=== PATIENT | female | born 1940 | race Caucasian/White ===

== ENCOUNTER 2017-06-13 | Day surgery (SDC) | END 2017-06-13 09:14 | disposition home or self-care (01) ==

== ENCOUNTER 2017-06-14 00:08 | Day surgery (SDC) | payer MEDICARE, OTHER ==
[~2017-06-14 00:08] MED LIST: BREO ELLIPTA 11 EACH INH; CARV25 PO; CELE100; CELE200 PO; DIAZ5 PO; ESTNOR PO; Estrace PO; FENT50TP TOP; FLUR15 PO; FURO20 PO; Ferrous Sulfat325 M2 PO; GABA300 PO; HYDACE10B PO; HYDACE5 PO; HYDCHL25 PO; IBUP600 PO; IBUP800 PO; IRBE150 PO; LEVSOD50 PO; LIDO5TP TOP; LORA1 PO; MELO7.5 PO; METF500 PO; METOPROLOL PO; MIRT30 PO; OXYACE5T PO; OXYASA5T PO; OXYC10TA19; OXYC5 PO; PANT40 PO; POTA8 PO; PRAV20 PO; RABE20; SPIR25 PO; VENL150ER PO; VENL25; VENL75ER PO
[2017-08-22] MEDS ORDERED: VENL150ER PO (12:37)
[2017-08-26] MEDS ORDERED: Estradiol0.5 MG PO (11:02)
[2017-11-08] MEDS ORDERED: Avapro300 MG PO (11:19)
[2017-11-08] MEDS ORDERED: OXYCODONE-ASPI1 EACH PO (11:21)
[2017-11-08] MEDS ORDERED: OXYC10TA19 PO (11:22)
[2017-11-08] MEDS ORDERED: MIRT30 PO (11:23)
[2017-11-08] MEDS ORDERED: VITAMIN C500 M1 PO (11:25)
[2017-11-08] MEDS ORDERED: LOPE2C PO (11:25)
[2017-11-08] MEDS ORDERED: VITAMIN D32000 UNI1 PO (11:26)
[2017-11-08] MEDS ORDERED: BREO ELLIPTA 11 EACH INH (11:27)
[2017-11-08] MEDS ORDERED: Keflex500 MG PO (13:02)
== END 2017-06-14 09:05 | disposition home or self-care (01) ==
LOC: ATC 00:08
DX: C73 Malignant neoplasm of thyroid gland (principal); E89.0 Postprocedural hypothyroidism; E78.5 Hyperlipidemia, unspecified; E66.9 Obesity, unspecified; I42.0 Dilated cardiomyopathy; I13.0 Hypertensive heart and chronic kidney disease with heart failure and stage 1 through stage 4 chronic kidney disease, or unspecified chronic kidney disease; I50.9 Heart failure, unspecified; N18.3 Chronic kidney disease, stage 3 (moderate)
CPT/HCPCS: 96372; J3240

== ENCOUNTER 2017-08-22 11:20 | Inpatient (IN) | payer MEDICARE, OTHER ==
[~2017-08-22] VITALS: Ht 160 cm; Wt 92.3 kg
[~2017-08-22 11:20] MED LIST changes: -CEFU500T30 PO; -Estradiol1 MG PO; -LOPE2C PO; -METO50 PO; -SACC250C PO; -VENLAFAXINE HC150 MG PO
[2017-08-22] MEDS ORDERED: VENLAFAXINE HC150 MG PO (12:37)
[2017-08-22 12:40] LABS: BASOPHILS ABSOLUTE AUTO 0.04 K/mm3 (0.00-0.23); BASOPHILS PERCENT AUTO 1 % (0-2); EOSINOPHILS ABSOLUTE AUTO 0.08 K/mm3 (0.00-0.68); EOSINOPHILS PERCENT AUTO 1 % (0-6); Hematocrit 36.2 % (33.0-51.0); Hemoglobin 11.5 g/dL (11.5-16.0); IMMATURE GRAN ABSOLUTE AUTO 0.03 K/mm3 (0.00-0.10); IMMATURE GRAN PERCENT AUTO 1 % (0-1); LYMPHOCYTES ABSOLUTE AUTO 0.49 K/mm3 (0.84-5.20); LYMPHOCYTES PERCENT AUTO 8 % (21-46); MONOCYTES PERCENT AUTO 12 % (4-13); Mean Corpuscular HGB 28.3 pg (26.0-34.0); Mean Corpuscular HGB Conc 31.8 g/dL (31.5-36.5); Mean Corpuscular Volume 89 fL (80-100); Mean Platelet Volume 10.3 fL (9.1-12.4); NEUTROPHILS ABSOLUTE AUTO 5.12 K/mm3 (1.96-9.15); NEUTROPHILS PERCENT AUTO 78 % (41-73); Platelet Count 260 K/mm3 (150-400); RDW Coefficient Variation 17.8 % (11.7-14.2); RDW Standard Deviation 58.7 fL (35.1-46.3); Red Blood Cell Count 4.06 M/mm3 (3.80-5.20); White Blood Cell Count 6.56 K/mm3 (4.00-11.30)
[2017-08-22 13:01] LABS: Albumin, Blood 2.5 g/dL (3.4-5.0); Albumin/Globulin Ratio 0.6 (0.8-1.8); Bilirubin, Total 0.8 mg/dL (0.1-1.0); Bun/Creatinine Ratio 13.3 (12.0-20.0); Calcium, Blood 8.2 mg/dL (8.5-10.1); Creatinine, Blood 0.98 mg/dL (0.40-1.00); Globulin, Blood 4.3 g/dL (2.2-4.0); Potassium, Blood 3.7 mmol/L (3.5-5.5); Total Protein, Blood 6.8 g/dL (6.4-8.2); Troponin I 0.046 ng/mL (0.000-0.040)
[2017-08-24 05:21] LABS: Hematocrit 34.4 % (33.0-51.0); Hemoglobin 10.8 g/dL (11.5-16.0); Mean Corpuscular HGB 27.8 pg (26.0-34.0); Mean Corpuscular HGB Conc 31.4 g/dL (31.5-36.5); Mean Corpuscular Volume 89 fL (80-100); Mean Platelet Volume 10.1 fL (9.1-12.4); Platelet Count 208 K/mm3 (150-400); RDW Coefficient Variation 17.8 % (11.7-14.2); RDW Standard Deviation 58.2 fL (35.1-46.3); Red Blood Cell Count 3.88 M/mm3 (3.80-5.20); White Blood Cell Count 4.61 K/mm3 (4.00-11.30)
[2017-08-24 05:45] LABS: Bun/Creatinine Ratio 15.2 (12.0-20.0); Calcium, Blood 8.1 mg/dL (8.5-10.1); Creatinine, Blood 1.05 mg/dL (0.40-1.00); Potassium, Blood 3.6 mmol/L (3.5-5.5)
[2017-08-26] MEDS ORDERED: METO50 PO (11:01)
[2017-08-26] MEDS ORDERED: Estradiol1 MG PO (11:02)
[2017-08-26] MEDS ORDERED: LOPE2C PO (11:03)
[2017-08-26] MEDS ORDERED: SACC250C PO (11:03)
[2017-08-26] MEDS ORDERED: CEFU500T30 PO (11:04)
== END 2017-08-26 13:15 | disposition home or self-care (01) | DRG 871 ==
LOC: ER 11:20 → MEDS 14:09
PROVIDERS: Emergency Medicine; Family Medicine
DX: A41.50 Gram-negative sepsis, unspecified (principal); J96.01 Acute respiratory failure with hypoxia; J18.9 Pneumonia, unspecified organism; I50.32 Chronic diastolic (congestive) heart failure; J98.11 Atelectasis; R65.20 Severe sepsis without septic shock; I11.0 Hypertensive heart disease with heart failure; G47.33 Obstructive sleep apnea (adult) (pediatric); D86.0 Sarcoidosis of lung; K44.9 Diaphragmatic hernia without obstruction or gangrene; E66.9 Obesity, unspecified; M19.90 Unspecified osteoarthritis, unspecified site; K21.9 Gastro-esophageal reflux disease without esophagitis; M54.9 Dorsalgia, unspecified; G89.29 Other chronic pain; Z85.3 Personal history of malignant neoplasm of breast; Z92.21 Personal history of antineoplastic chemotherapy; Z92.3 Personal history of irradiation; Z79.899 Other long term (current) drug therapy
CPT/HCPCS: 36415; 71046; 71260; 80048; 80053; 83605; 83880; 84484; 85025; 85027; 87040; 87077; 87086; 87186; 87493; 93005; 93010; 94660; 94761; 94762; 96361; 96365; 97116; 97162; 99285; G8978; G8979; G8980; J0456; J0696; J1650; J1940; J7030; J7050; Q9967

== ENCOUNTER → 2017-08-22 | Outpatient (CLI) | payer MEDICARE, OTHER ==
[~2017-08-22] MED LIST changes: +CEFU500T30 PO; +Estradiol1 MG PO; +LOPE2C PO; +METO50 PO; +SACC250C PO; +VENLAFAXINE HC150 MG PO
[2017-08-22 10:40] LABS: BASOPHILS ABSOLUTE AUTO 0.07 K/mm3 (0.00-0.23); BASOPHILS PERCENT AUTO 1 % (0-2); EOSINOPHILS ABSOLUTE AUTO 0.08 K/mm3 (0.00-0.68); EOSINOPHILS PERCENT AUTO 1 % (0-6); Hematocrit 39.1 % (33.0-51.0); Hemoglobin 12.5 g/dL (11.5-16.0); IMMATURE GRAN ABSOLUTE AUTO 0.03 K/mm3 (0.00-0.10); IMMATURE GRAN PERCENT AUTO 0 % (0-1); LYMPHOCYTES ABSOLUTE AUTO 0.48 K/mm3 (0.84-5.20); LYMPHOCYTES PERCENT AUTO 7 % (21-46); MONOCYTES ABSOLUTE AUTO 0.67 K/mm3 (0.16-1.47); MONOCYTES PERCENT AUTO 9 % (4-13); Mean Corpuscular HGB 28.2 pg (26.0-34.0); Mean Corpuscular Volume 88 fL (80-100); NEUTROPHILS PERCENT AUTO 82 % (41-73); Platelet Count 295 K/mm3 (150-400); RDW Coefficient Variation 17.8 % (11.7-14.2); RDW Standard Deviation 57.7 fL (35.1-46.3); Red Blood Cell Count 4.43 M/mm3 (3.80-5.20); White Blood Cell Count 7.23 K/mm3 (4.00-11.30)
[2017-08-22 10:54] LABS: Albumin, Blood 2.7 g/dL (3.4-5.0); Albumin/Globulin Ratio 0.6 (0.8-1.8); Bilirubin, Total 0.8 mg/dL (0.1-1.0); Bun/Creatinine Ratio 11.6 (12.0-20.0); Calcium, Blood 8.6 mg/dL (8.5-10.1); Creatinine, Blood 1.21 mg/dL (0.40-1.00); Globulin, Blood 4.9 g/dL (2.2-4.0); Potassium, Blood 3.6 mmol/L (3.5-5.5); Total Protein, Blood 7.6 g/dL (6.4-8.2); Troponin I 0.06 ng/mL (0.000-0.040)
== END | disposition home or self-care (01) ==
LOC: LAB EV 10:36 → LAB SHORT 10:36
PROVIDERS: Physician Assistant Medical
DX: R06.00 Dyspnea, unspecified (principal)
CPT/HCPCS: 80053; 84484; 85025

== ENCOUNTER 2017-09-24 05:16 | Inpatient (IN) | payer MEDICARE, OTHER ==
[~2017-09-24] VITALS: Ht 160 cm; Wt 92.0 kg
[~2017-09-24 05:16] MED LIST changes: +CEFU500T30 PO; +Estradiol0.5 MG PO; +LOPE2C PO; +METO50 PO; +SACC250C PO; +VENL25 PO
[2017-09-24 05:51] LABS: BASOPHILS ABSOLUTE AUTO 0.04 K/mm3 (0.00-0.23); BASOPHILS PERCENT AUTO 1 % (0-2); EOSINOPHILS ABSOLUTE AUTO 0.09 K/mm3 (0.00-0.68); EOSINOPHILS PERCENT AUTO 1 % (0-6); Hematocrit 35.2 % (33.0-51.0); Hemoglobin 11.3 g/dL (11.5-16.0); IMMATURE GRAN ABSOLUTE AUTO 0.03 K/mm3 (0.00-0.10); IMMATURE GRAN PERCENT AUTO 0 % (0-1); LYMPHOCYTES ABSOLUTE AUTO 0.57 K/mm3 (0.84-5.20); LYMPHOCYTES PERCENT AUTO 7 % (21-46); MONOCYTES ABSOLUTE AUTO 1.09 K/mm3 (0.16-1.47); MONOCYTES PERCENT AUTO 13 % (4-13); Mean Corpuscular HGB 28.4 pg (26.0-34.0); Mean Corpuscular HGB Conc 32.1 g/dL (31.5-36.5); Mean Corpuscular Volume 88 fL (80-100); Mean Platelet Volume 10.3 fL (9.1-12.4); NEUTROPHILS ABSOLUTE AUTO 6.52 K/mm3 (1.96-9.15); NEUTROPHILS PERCENT AUTO 78 % (41-73); Platelet Count 182 K/mm3 (150-400); RDW Coefficient Variation 14.6 % (11.7-14.2); RDW Standard Deviation 46.7 fL (35.1-46.3); Red Blood Cell Count 3.98 M/mm3 (3.80-5.20); White Blood Cell Count 8.34 K/mm3 (4.00-11.30)
[2017-09-24 06:28] LABS: Alanine Aminotransfer (ALT/SGP 14 U/L (12-78); Albumin, Blood 2.8 g/dL (3.4-5.0); Albumin/Globulin Ratio 0.6 (0.8-1.8); Alk Phos 84 U/L (50-136); Anion Gap 10 mmol/L (6-16); Aspartate Aminotrans (AST/SGOT 17 U/L (12-37); Bilirubin, Total 1.2 mg/dL (0.1-1.0); Blood Urea Nitrogen 8 mg/dL (8-24); Bun/Creatinine Ratio 9.1 (12.0-20.0); CO2, Blood 26 mmol/L (21-32); Calcium, Blood 8.4 mg/dL (8.5-10.1); Chloride, Blood 103 mmol/L (98-108); Creatinine, Blood 0.88 mg/dL (0.40-1.00); Globulin, Blood 4.7 g/dL (2.2-4.0); Glomerular Filtration Rate >60 (60-); Glucose, Blood 111 mg/dL (70-99); Potassium, Blood 3.7 mmol/L (3.5-5.5); Sodium, Blood 139 mmol/L (136-145); Total Protein, Blood 7.5 g/dL (6.4-8.2); Troponin I <0.015 ng/mL (0.000-0.040)
[2017-09-24 08:13] LABS: Source, Urine Catheter
[2017-09-24 08:16] LABS: Blood, Urine 4+ (Neg); Glucose Qualitative, Urine Neg (Neg); Ketones, Urine 1+ (Neg); Leukocyte Esterase, Urine 3+ (Neg); Nitrite, Urine Pos (Neg); Protein, Urine 3+ (Neg); Specific Gravity, Urine 1.025 (1.003-1.022); Urobilinogen, Urine 2+ (Normal)
[2017-09-24 08:23] LABS: Color, Urine Amber (P-Yellow)
[2017-09-24 08:24] LABS: Appearance, Urine Cloudy (Clear)
[2017-09-24 08:26] LABS: Bacteria Rare /hpf; Mucus Mod (0-Heavy); Red Blood Cells, Urine 25-50 /hpf (0-2); Squamous Epithelial Cells Mod /hpf (Few)
[2017-09-24] MEDS ORDERED: OXYC10TA19 PO (10:32)
[2017-09-24 11:20] LABS: Bilirubin, Urine 1+ (Neg)
[2017-09-25 04:39] LABS: BASOPHILS ABSOLUTE AUTO 0.06 K/mm3 (0.00-0.23); BASOPHILS PERCENT AUTO 1 % (0-2); EOSINOPHILS ABSOLUTE AUTO 0.28 K/mm3 (0.00-0.68); EOSINOPHILS PERCENT AUTO 4 % (0-6); Hemoglobin 11.6 g/dL (11.5-16.0); IMMATURE GRAN ABSOLUTE AUTO 0.04 K/mm3 (0.00-0.10); IMMATURE GRAN PERCENT AUTO 1 % (0-1); LYMPHOCYTES ABSOLUTE AUTO 0.73 K/mm3 (0.84-5.20); LYMPHOCYTES PERCENT AUTO 9 % (21-46); MONOCYTES ABSOLUTE AUTO 1.02 K/mm3 (0.16-1.47); MONOCYTES PERCENT AUTO 13 % (4-13); Mean Corpuscular HGB 27.8 pg (26.0-34.0); Mean Corpuscular HGB Conc 31.4 g/dL (31.5-36.5); Mean Corpuscular Volume 89 fL (80-100); Mean Platelet Volume 10.9 fL (9.1-12.4); NEUTROPHILS ABSOLUTE AUTO 5.71 K/mm3 (1.96-9.15); NEUTROPHILS PERCENT AUTO 73 % (41-73); Platelet Count 216 K/mm3 (150-400); RDW Coefficient Variation 14.6 % (11.7-14.2); Red Blood Cell Count 4.18 M/mm3 (3.80-5.20); White Blood Cell Count 7.84 K/mm3 (4.00-11.30)
[2017-09-25 04:56] LABS: Anion Gap 8 mmol/L (6-16); Blood Urea Nitrogen 9 mg/dL (8-24); Bun/Creatinine Ratio 9.6 (12.0-20.0); CO2, Blood 26 mmol/L (21-32); Calcium, Blood 7.9 mg/dL (8.5-10.1); Chloride, Blood 107 mmol/L (98-108); Creatinine, Blood 0.94 mg/dL (0.40-1.00); Glomerular Filtration Rate >60 (60-); Glucose, Blood 101 mg/dL (70-99); Potassium, Blood 3.8 mmol/L (3.5-5.5); Sodium, Blood 141 mmol/L (136-145)
[2017-09-27 05:24] LABS: Hematocrit 33.3 % (33.0-51.0); Hemoglobin 10.8 g/dL (11.5-16.0); Mean Corpuscular HGB 28.6 pg (26.0-34.0); Mean Corpuscular HGB Conc 32.4 g/dL (31.5-36.5); Mean Corpuscular Volume 88 fL (80-100); Mean Platelet Volume 10.5 fL (9.1-12.4); Platelet Count 207 K/mm3 (150-400); RDW Coefficient Variation 14.3 % (11.7-14.2); Red Blood Cell Count 3.77 M/mm3 (3.80-5.20); White Blood Cell Count 6.47 K/mm3 (4.00-11.30)
[2017-09-27 05:46] LABS: Bun/Creatinine Ratio 11.9 (12.0-20.0); Creatinine, Blood 1.18 mg/dL (0.40-1.00); Potassium, Blood 3.8 mmol/L (3.5-5.5)
[2017-09-28 09:37] LABS: Creatinine, Blood 1.14 mg/dL (0.40-1.00)
[2017-09-28 09:39] LABS: Vancomycin, Trough 25.9 ug/mL (5.0-10.0)
[2017-09-28] MEDS ORDERED: METO50 PO (10:11)
[2017-09-28] MEDS ORDERED: LEVO750 PO (10:12)
[2017-09-28] MEDS ORDERED: NITR100CA PO (10:12)
[2017-09-28] MEDS ORDERED: MIRT30 PO (10:12)
== END 2017-09-28 10:55 | disposition home health service (06) | DRG 193 ==
LOC: ER 05:16 → MEDS 08:33 → ENPENDDIS 09-28 09:27 → MEDS 09-28 10:55
PROVIDERS: Emergency Medicine; Internal Medicine; Pharmacist
DX: J18.9 Pneumonia, unspecified organism (principal); J96.21 Acute and chronic respiratory failure with hypoxia; N39.0 Urinary tract infection, site not specified; I13.0 Hypertensive heart and chronic kidney disease with heart failure and stage 1 through stage 4 chronic kidney disease, or unspecified chronic kidney disease; I50.42 Chronic combined systolic (congestive) and diastolic (congestive) heart failure; Y95 Nosocomial condition; M94.0 Chondrocostal junction syndrome [Tietze]; B95.2 Enterococcus as the cause of diseases classified elsewhere; Z16.12 Extended spectrum beta lactamase (ESBL) resistance; N18.3 Chronic kidney disease, stage 3 (moderate); G47.33 Obstructive sleep apnea (adult) (pediatric); E03.9 Hypothyroidism, unspecified; M54.9 Dorsalgia, unspecified; K21.9 Gastro-esophageal reflux disease without esophagitis
CPT/HCPCS: 36415; 71046; 80048; 80053; 80202; 81001; 82565; 83605; 84145; 84484; 85025; 85027; 87040; 87077; 87086; 87186; 93005; 93010; 94762; 96365; 96366; 96367; 96368; 97110; 97116; 97162; 97166; 97530; 97535; 99285; G0515; G8978; G8979; G8987; G8988; J0456; J0696; J1650; J1885; J2185; J2543; J3370; J7030; J7050

== ENCOUNTER → 2018-07-12 | Outpatient (CLI) | payer MEDICARE, OTHER ==
[~2018-07-12] MED LIST changes: +Avapro300 MG PO; +Keflex500 MG PO; +LEVO750 PO; +NITR100CA PO; +OXYC10TA19 PO; +OXYCODONE-ASPI1 EACH PO; -VENL25 PO; +VITAMIN C500 M1 PO; +VITAMIN D32000 UNI1 PO
== END | disposition home or self-care (01) ==
LOC: LAB SHORT 08:49 → LAB EV 08:49
DX: N39.0 Urinary tract infection, site not specified (principal)
CPT/HCPCS: 87077; 87086; 87186

== ENCOUNTER 2018-08-04 11:16 | Day surgery (SDC) | payer MEDICARE, OTHER ==
[~2018-08-04] VITALS: Ht 157.5 cm; Wt 70.0 kg
[2018-08-04] MEDS ORDERED: Toviaz4 MG PO (12:18)
[2018-08-04] MEDS ORDERED: FLUR15 PO (12:19)
--- NOTE | 2018-08-04 12:26 | NUR ---
08/04/18 1226 Samra Polanco V PT RESTING IN BED, SIDE RAILS IN PLACE, CALL LIGHT WITHIN REACH, VSS. PT TEACHING COMPLETED. PT DENIES PAIN, DISCOMFORT, AND QUESTIONS AT THIS TIME.
--- NOTE | 2018-08-04 13:47 | NUR ---
08/04/18 1347 Toma Dow PT RESPONDS TO VERBAL COMMANDS. PT FALLS ASLEEP EASILY. PT DOES NOT C/O PAIN OR NAUSEA AT THIS TIME. NO DRAINAGE ON PAD.
--- NOTE | 2018-08-04 14:04 | NUR ---
08/04/18 1404 Toma Dow PT DENIES PAIN AND NAUSEA IN SDU. TOLERATING PO FLUIDS AND SNACKS WELL. [facility] AT CHAIRSIDE. CLEAN PAD AND MADONNA PANTIES PLACED ON TRANSFER TO RECLINER. SCANT RED BLOOD ON SHEET FROM TRANSFER [place].
== END 2018-08-04 14:33 | disposition home or self-care (01) ==
LOC: ORSCSDS 11:16
PROVIDERS: Surgery
PROC: 0DBQXZZ Excision of Anus, External Approach (ICD-10-PCS; principal; 2018-08-04 13:30)
DX: K64.4 Residual hemorrhoidal skin tags (principal); G47.33 Obstructive sleep apnea (adult) (pediatric); F32.9 Major depressive disorder, single episode, unspecified; I10 Essential (primary) hypertension; Z79.899 Other long term (current) drug therapy
CPT/HCPCS: 88304; J1100; J2250; J2405; J2704; J7120

== ENCOUNTER 2018-08-28 00:08 | Day surgery (SDC) | payer MEDICARE, OTHER ==
[~2018-08-28 00:08] MED LIST changes: +ERTAPENEM1 GM IV; +Toviaz4 MG PO
== END 2018-08-28 23:04 | disposition home or self-care (01) ==
LOC: ATC 00:08
DX: N39.0 Urinary tract infection, site not specified (principal); I13.0 Hypertensive heart and chronic kidney disease with heart failure and stage 1 through stage 4 chronic kidney disease, or unspecified chronic kidney disease; N18.3 Chronic kidney disease, stage 3 (moderate); I50.22 Chronic systolic (congestive) heart failure; E78.5 Hyperlipidemia, unspecified; K21.9 Gastro-esophageal reflux disease without esophagitis; G47.33 Obstructive sleep apnea (adult) (pediatric); E66.9 Obesity, unspecified; Z88.8 Allergy status to other drugs, medicaments and biological substances; Z79.899 Other long term (current) drug therapy
CPT/HCPCS: J1335

== ENCOUNTER 2018-08-30 00:16 | Day surgery (SDC) | payer MEDICARE, OTHER | END 2018-08-30 22:47 | disposition home or self-care (01) | LOC: ATC 00:16 | DX: N39.0 Urinary tract infection, site not specified (principal); I13.0 Hypertensive heart and chronic kidney disease with heart failure and stage 1 through stage 4 chronic kidney disease, or unspecified chronic kidney disease; N18.3 Chronic kidney disease, stage 3 (moderate); I50.22 Chronic systolic (congestive) heart failure; E78.5 Hyperlipidemia, unspecified; K21.9 Gastro-esophageal reflux disease without esophagitis; G47.33 Obstructive sleep apnea (adult) (pediatric); E03.9 Hypothyroidism, unspecified; E78.49 Other hyperlipidemia; E66.9 Obesity, unspecified; Z88.1 Allergy status to other antibiotic agents; Z88.8 Allergy status to other drugs, medicaments and biological substances; Z79.899 Other long term (current) drug therapy | CPT/HCPCS: 96365; J1335 ==

== ENCOUNTER → 2018-09-02 | Outpatient (CLI) | payer MEDICARE, OTHER | END | disposition home or self-care (01) | LOC: LAB EV 10:49 → LAB SHORT 10:49 | DX: N39.0 Urinary tract infection, site not specified (principal) | CPT/HCPCS: 87086 ==

== ENCOUNTER 2019-04-22 07:36 | Emergency (ER) | payer MEDICARE, OTHER ==
[~2019-04-22] VITALS: Ht 157.5 cm; Wt 63.5 kg
[2019-04-22] MEDS ORDERED: GABA300T24 PO (07:59)
[2019-04-22] MEDS ORDERED: VANCOCIN HCL125 MG PO (08:00)
[2019-04-22] MEDS ORDERED: LEVOCETIRIZINE D5 MG PO (08:01)
[2019-04-22] MEDS ORDERED: IBESARTAN PO (08:03)
[2019-04-22 08:17] LABS: BASOPHILS ABSOLUTE AUTO 0.09 K/mm3 (0.00-0.23); BASOPHILS PERCENT AUTO 1 % (0-2); EOSINOPHILS PERCENT AUTO 3 % (0-6); Hematocrit 39.1 % (33.0-51.0); IMMATURE GRAN ABSOLUTE AUTO 0.02 K/mm3 (0.00-0.10); IMMATURE GRAN PERCENT AUTO 0 % (0-1); LYMPHOCYTES ABSOLUTE AUTO 1.47 K/mm3 (0.84-5.20); LYMPHOCYTES PERCENT AUTO 18 % (21-46); MONOCYTES ABSOLUTE AUTO 0.63 K/mm3 (0.16-1.47); MONOCYTES PERCENT AUTO 8 % (4-13); Mean Corpuscular HGB 25.3 pg (26.0-34.0); Mean Corpuscular HGB Conc 30.7 g/dL (31.5-36.5); Mean Corpuscular Volume 83 fL (80-100); Mean Platelet Volume 10.9 fL (9.1-12.4); NEUTROPHILS ABSOLUTE AUTO 5.71 K/mm3 (1.96-9.15); NEUTROPHILS PERCENT AUTO 70 % (41-73); Platelet Count 293 K/mm3 (150-400); RDW Coefficient Variation 15.3 % (11.7-14.2); RDW Standard Deviation 45.5 fL (35.1-46.3); Red Blood Cell Count 4.74 M/mm3 (3.80-5.20); White Blood Cell Count 8.12 K/mm3 (4.00-11.30)
[2019-04-22 08:35] LABS: Alanine Aminotransfer (ALT/SGP 19 U/L (12-78); Albumin, Blood 3.3 g/dL (3.4-5.0); Albumin/Globulin Ratio 0.8 (0.8-1.8); Alk Phos 87 U/L (50-136); Anion Gap 7 mmol/L (6-16); Aspartate Aminotrans (AST/SGOT 19 U/L (12-37); Bilirubin, Total 0.4 mg/dL (0.1-1.0); Blood Urea Nitrogen 14 mg/dL (8-24); Bun/Creatinine Ratio 13.3 (12.0-20.0); CO2, Blood 25 mmol/L (21-32); Calcium, Blood 8.2 mg/dL (8.5-10.1); Chloride, Blood 111 mmol/L (98-108); Creatinine, Blood 1.05 mg/dL (0.40-1.00); Glomerular Filtration Rate 54 (60-); Glucose, Blood 91 mg/dL (70-99); Potassium, Blood 4.1 mmol/L (3.5-5.5); Sodium, Blood 143 mmol/L (136-145); Total Protein, Blood 7.3 g/dL (6.4-8.2); Troponin I <0.015 ng/mL (0.000-0.040)
[2019-04-22] MEDS ORDERED: Prednisone20 MG PO (09:54)
[2019-04-22] MEDS ORDERED: Percocet 5-3251 EACH PO (10:11)
== END 2019-04-22 10:21 | disposition home or self-care (01) ==
LOC: ER 07:36
PROVIDERS: Emergency Medicine
DX: I11.0 Hypertensive heart disease with heart failure (principal); I50.9 Heart failure, unspecified; K21.9 Gastro-esophageal reflux disease without esophagitis; D50.9 Iron deficiency anemia, unspecified; Z88.5 Allergy status to narcotic agent; Z88.8 Allergy status to other drugs, medicaments and biological substances; Z79.899 Other long term (current) drug therapy; G47.33 Obstructive sleep apnea (adult) (pediatric); Z85.3 Personal history of malignant neoplasm of breast
CPT/HCPCS: 36415; 71046; 80053; 84484; 85025; 93005; 93010; 94644; 96374; 96375; 99284-25; J1940; J2930; J3010

== ENCOUNTER → 2019-05-02 | Outpatient (CLI) | payer MEDICARE, OTHER ==
[~2019-05-02] MED LIST changes: +GABA300T24 PO; +IBESARTAN PO; +LEVOCETIRIZINE D5 MG PO; +Percocet 5-3251 EACH PO; +Prednisone20 MG PO; +VANCOCIN HCL125 MG PO
== END | disposition home or self-care (01) ==
LOC: LAB SHORT 17:00 → LAB 17:00
DX: A09 Infectious gastroenteritis and colitis, unspecified (principal)
CPT/HCPCS: 87493

== ENCOUNTER 2019-05-17 08:39 | Inpatient (IN) | payer MEDICARE, OTHER ==
[~2019-05-17] VITALS: Ht 157.5 cm; Wt 66.5 kg
[~2019-05-17 08:39] MED LIST changes: -IBESARTAN PO
[2019-05-17] MEDS ORDERED: ASCO500 PO (09:13)
[2019-05-17] MEDS ORDERED: THERA-D2000 UNIT PO (09:13)
[2019-05-17 09:21] LABS: BASOPHILS ABSOLUTE AUTO 0.03 K/mm3 (0.00-0.23); BASOPHILS PERCENT AUTO 0 % (0-2); EOSINOPHILS PERCENT AUTO 0 % (0-6); Hematocrit 35.1 % (33.0-51.0); Hemoglobin 10.7 g/dL (11.5-16.0); IMMATURE GRAN ABSOLUTE AUTO 0.03 K/mm3 (0.00-0.10); IMMATURE GRAN PERCENT AUTO 0 % (0-1); LYMPHOCYTES ABSOLUTE AUTO 0.41 K/mm3 (0.84-5.20); LYMPHOCYTES PERCENT AUTO 6 % (21-46); MONOCYTES ABSOLUTE AUTO 0.43 K/mm3 (0.16-1.47); MONOCYTES PERCENT AUTO 6 % (4-13); Mean Corpuscular HGB 25.3 pg (26.0-34.0); Mean Corpuscular HGB Conc 30.5 g/dL (31.5-36.5); Mean Corpuscular Volume 83 fL (80-100); Mean Platelet Volume 10.9 fL (9.1-12.4); NEUTROPHILS ABSOLUTE AUTO 6.52 K/mm3 (1.96-9.15); NEUTROPHILS PERCENT AUTO 88 % (41-73); Platelet Count 192 K/mm3 (150-400); RDW Coefficient Variation 17.9 % (11.7-14.2); Red Blood Cell Count 4.23 M/mm3 (3.80-5.20); White Blood Cell Count 7.42 K/mm3 (4.00-11.30)
[2019-05-17 09:37] LABS: Albumin, Blood 3.1 g/dL (3.4-5.0); Bun/Creatinine Ratio 13.6 (12.0-20.0); Calcium, Blood 8.1 mg/dL (8.5-10.1); Creatinine, Blood 1.25 mg/dL (0.40-1.00); Potassium, Blood 3.8 mmol/L (3.5-5.5)
[2019-05-17 09:41] LABS: Albumin/Globulin Ratio 0.8 (0.8-1.8); Bilirubin, Total 1.2 mg/dL (0.1-1.0); Globulin, Blood 3.8 g/dL (2.2-4.0); Total Protein, Blood 6.9 g/dL (6.4-8.2)
[2019-05-17 09:42] LABS: Troponin I 0.077 ng/mL (0.000-0.040)
[2019-05-17 11:00] LABS: Magnesium, Blood 1.8 mg/dL (1.6-2.4)
[2019-05-17 11:03] LABS: Thyroid Stimulating Hormone 0.563 uIU/mL (0.360-4.800)
--- NOTE | 2019-05-17 13:44 | NUR ---
PCU ADMIT NOTE PATIENT ARRIVED VIA GURNEY FROM ER. PATIENT AMBULATED OVER TO UNIT BED IN PCU 12 - PATIENT TOLERATED WELL WITH SBA. PATIENT REPORTS THAT SHE USES A WALKER AT HOME. RESP E/U WITH AMBULATION ON 2 LPM NC - LUNG SOUNDS CLEAR. HEART RATE 104 SINUS TACH WITH NO EVENTS NOTED PER PCU TECH. PATIENT HAS RASH/REDNESS NOTED AROUND BELLY BUTTON AND GROIN AREA. ATTENDS IN PLACE. SPOKE TO YOU Dykes PER PATIENT REQUEST AND UPDATED HER ON PATIENT CONDITION. PATIENT RESTING IN ROOM. NO S/SX OF DISTRESS NOTED. CALL LIGHT W/I REACH.
--- NOTE | 2019-05-17 14:55 | NUR ---
echocardiogram complete
[2019-05-17 15:22] LABS: Adenovirus Not Detected (NOT DETECT); Bordetella pertussis Not Detected (NOT DETECT); Chlamydophila pneumoniae Not Detected (NOT DETECT); Coronavirus 229E Not Detected (NOT DETECT); Coronavirus HKU1 Not Detected (NOT DETECT); Coronavirus NL63 Not Detected (NOT DETECT); Coronavirus OC43 Not Detected (NOT DETECT); Human Metapneumovirus Not Detected (NOT DETECT); Human Rhinovirus/Enterovirus Not Detected (NOT DETECT); Influenza A Not Detected (NOT DETECT); Influenza A/2009-H1 Detected (NOT DETECT); Influenza A/H1 Not Detected (NOT DETECT); Influenza A/H3 Not Detected (NOT DETECT); Influenza B Not Detected (NOT DETECT); Mycoplasma pneumoniae Not Detected (NOT DETECT); Parainfluenza Virus 1 Not Detected (NOT DETECT); Parainfluenza Virus 2 Not Detected (NOT DETECT); Parainfluenza Virus 3 Not Detected (NOT DETECT); Parainfluenza Virus 4 Not Detected (NOT DETECT); Respiratory Syncytial Virus Not Detected (NOT DETECT)
--- NOTE | 2019-05-17 18:40 | NUR ---
1715 PT TRANSFERED TO MEDICAL FLOOR FROM PCU VIA W/C. PT ON 1.5L O2 NC. PT IS PLEASANT AND APPROPRIATE. PT REPORTS FEELING "TERRIBLE" IN GENERAL. PT REPORTS THAT SHE HAS A DRY NON PRODUCTIVE COUGH AND CHEST DISCOMFORT WITH COUGHING. PT POSITIVE FOR FLU, DROPLET ISOLATION INITIATED.
--- NOTE | 2019-05-17 23:57 | NUR ---
05/17/192129 RN GIVING PM MEDS. PT REQUESTING FENTANYL IV FOR GENERAL CHEST DISCOMFORT "FROM COUGHING". PT HAS TYLENOL AND COUGH PILLS ORDERED AND RN WILL GIVE HER THOSE MEDS FIRST.
--- NOTE | 2019-05-18 00:01 | NUR ---
05/17/19 2300 PT SLEEPING WELL AT THIS TIME. O2 AT 1.5 LPM VIA N/C. RESP. CARE SET UP CPAP BUT PT DECLINED IT EARLIER.
[2019-05-18 05:33] LABS: BASOPHILS ABSOLUTE AUTO 0.03 K/mm3 (0.00-0.23); BASOPHILS PERCENT AUTO 1 % (0-2); EOSINOPHILS ABSOLUTE AUTO 0.06 K/mm3 (0.00-0.68); EOSINOPHILS PERCENT AUTO 1 % (0-6); Hematocrit 34.6 % (33.0-51.0); Hemoglobin 10.6 g/dL (11.5-16.0); IMMATURE GRAN ABSOLUTE AUTO 0.02 K/mm3 (0.00-0.10); IMMATURE GRAN PERCENT AUTO 1 % (0-1); LYMPHOCYTES ABSOLUTE AUTO 0.56 K/mm3 (0.84-5.20); LYMPHOCYTES PERCENT AUTO 13 % (21-46); MONOCYTES ABSOLUTE AUTO 0.37 K/mm3 (0.16-1.47); MONOCYTES PERCENT AUTO 9 % (4-13); Mean Corpuscular HGB 25.2 pg (26.0-34.0); Mean Corpuscular HGB Conc 30.6 g/dL (31.5-36.5); Mean Corpuscular Volume 82 fL (80-100); Mean Platelet Volume 11.8 fL (9.1-12.4); NEUTROPHILS ABSOLUTE AUTO 3.13 K/mm3 (1.96-9.15); NEUTROPHILS PERCENT AUTO 75 % (41-73); Platelet Count 163 K/mm3 (150-400); RDW Coefficient Variation 17.8 % (11.7-14.2); RDW Standard Deviation 52.6 fL (35.1-46.3); Red Blood Cell Count 4.21 M/mm3 (3.80-5.20); White Blood Cell Count 4.17 K/mm3 (4.00-11.30)
[2019-05-18 06:02] LABS: Albumin, Blood 2.9 g/dL (3.4-5.0); Albumin/Globulin Ratio 0.8 (0.8-1.8); Bilirubin, Total 0.8 mg/dL (0.1-1.0); Bun/Creatinine Ratio 21.3 (12.0-20.0); Calcium, Blood 8.2 mg/dL (8.5-10.1); Creatinine, Blood 1.08 mg/dL (0.40-1.00); Globulin, Blood 3.7 g/dL (2.2-4.0); Potassium, Blood 3.6 mmol/L (3.5-5.5); Total Protein, Blood 6.6 g/dL (6.4-8.2)
--- NOTE | 2019-05-18 07:40 | NUR ---
05/18/19 0645 PT GETTING RESP. TX. AM MEDS GIVEN. STATES SHE SLEPT "ON AND OFF". VITALS STABLE. HEART MONITOR STABLE AT SR IN THE 70-80'S THIS AM.
--- NOTE | 2019-05-18 19:10 | NUR ---
SHIFT SUMMARY. A&OX4, INDEPENDENT TO BSC, PT AWARE OF LIMIATIONS AND CALLS APPROPRIATELY. PT REPORTS FEELING OVERALL BETTER TODAY. PT REPORTS COUGH AND CHEST DISCOMFORT HAS DECREASED. COUGH MANAGED WELL WITH TESSALON PEARLS. NO N/V. PT STARTED ON TAMILFLU TODAY. DAUGHTER UPDATED ON STATUS TODAY. NO NEW CHANGES OR CONCERNS.
--- NOTE | 2019-05-19 04:20 | NUR ---
SHIFT SUMMARY: TEMP 99.4. BP 99/60, METOPROLOL HELD AT HS. A/OX4. MAKES NEEDS KNOWN. PT ANXIOUS TO GET SOME SLEEP TONIGHT. OFFERED MUCH UNINTERUPTED REST POSSIBLE TONIGHT. PT DENIES CHEST PAIN, DENIES SOB. MINIMAL COUGHING TONIGHT. STATES SHE STILL FEELS EXCESSIVELY WEAK ALL OVER. INDEPENDENT IN ROOM. BED LOW, CALL BUTTON IN REACH. WILL CONT TO MONITOR.
--- NOTE | 2019-05-19 12:58 | NUR ---
SHE IS IN DROPLET ISOLATION FOR THE FLU AND IS RECEIVING TAMIFLU PO. NEW SALINE LOCK STARTED TODAY BECAUSE THE OLD ONE LEAKED A LITTLE BIT. IT WAS A FIELD START. DENIES ANY REDNESS IN HER FOLDS. UP AD NETO TO THE BSC. DIURETIC HAS BEEN DECREASED TO DAILY INSTEAD OF BID. COMPLAINED A LOT ABOUT HER DAUGHTER'S DISINTEREST IN HELPING HER PARENTS IN THEIR TIME OF NEED.
[2019-05-19] MEDS ORDERED: LEVSOD112 PO (13:47)
[2019-05-19] MEDS ORDERED: ESTR2 PO (13:50)
[2019-05-19] MEDS ORDERED: [UNRECOGNIZED DRUG - OTHER] PO (13:52)
--- NOTE | 2019-05-19 15:35 | NUR ---
NITRIGLYCERIN PASTE REMOVED/DC'D AT 1330 WHEN ROUNDED.
--- NOTE | 2019-05-19 19:43 | NUR ---
SHE HAS KAMRON ON RA THE PAST 4 HRS. NO COMPLAINTS OF SOB. SHE NAPPED AND HAD DINNER. SHE LIKES TO DRINK LOTS OF FLUIDS. FLUID RESTRICTION STARTING TONIGHT AFTER DINNER, LATE ORDER FROM . TELE NSR.DROPLET ISOLATION ONGOING FOR THE FLU. NTG PASTE WAS DC'D TODAY. SBP OVER 100 THIS EVENING.
--- NOTE | 2019-05-20 04:28 | NUR ---
SHIFT SUMMARY: ALEJANDRA. AFEB. A/OX3. LSCTA. 02 SATS 86% ON RA WHILE PT SLEEPS. UP TO 94% ON 1.5L VIA NC. PT REFUSED TO USE CPAP. STATES SHE USED TO HAVE ONE BUT FELT CLAUSTROPHOBIC IN IT. REQUESTED PRN TASSALON PERRLES FOR COUGH AT HS. HAS SLEPT MUCH OF THE NIGHT. NO ACUTE CHANGES. BED LOW, CALL BUTTON IN REACH. WILL CONT TO MONITOR.
[2019-05-20 05:58] LABS: Albumin, Blood 2.5 g/dL (3.4-5.0); Anion Gap 6 mmol/L (6-16); Blood Urea Nitrogen 24 mg/dL (8-24); Bun/Creatinine Ratio 24.2 (12.0-20.0); CO2, Blood 28 mmol/L (21-32); Calcium, Blood 8.3 mg/dL (8.5-10.1); Chloride, Blood 104 mmol/L (98-108); Creatinine, Blood 0.99 mg/dL (0.40-1.00); Glomerular Filtration Rate 58 (60-); Glucose, Blood 98 mg/dL (70-99); Phosphorus, Blood 2.9 mg/dL (2.5-4.9); Potassium, Blood 3.9 mmol/L (3.5-5.5); Sodium, Blood 138 mmol/L (136-145)
--- NOTE | 2019-05-20 12:30 | NUR ---
SHE HAS HAD HER PT EVALUATION AND HER HOME O2 EVAL. SHE DID WELL WITH PT AND SHE DID NOT QUALIFY FOR O2 AT HOME. SHE WILL HAVE A SLEEP STUDY OUTPATIENT. HER COUGH HAS BEEN SHALLOW AND DRY. SHE HAS HAD 1L O2 BY CT ON AND OFF DESIRED TODAY. SHE EATS FAIR. SHE WAS TAKEN IN A W/C OVER TO HER 'S ROOM TO VISIT. SHE ENJOYED THAT. HER DAUGHTER CALLED TODAY TO TALK. NO OTHER CHANGES.
[2019-05-20] MEDS ORDERED: BENZ100A PO (14:34)
[2019-05-20] MEDS ORDERED: ASPI81CH PO (14:34)
[2019-05-20] MEDS ORDERED: FURO40 PO (14:34)
[2019-05-20] MEDS ORDERED: ALBU90OI INH (14:35)
[2019-05-20] MEDS ORDERED: OSEL75CA PO (14:35)
--- NOTE | 2019-05-20 15:16 | NUR ---
SHE HAS HER DC INSTRUCTIONS. SHE SAYS SHE CAN PIECE HAND HER RX'S TODAY. NO FURTHER QUESTIONS.
--- NOTE | 2019-05-20 16:27 | NUR ---
DISCHARGED TO HOME AT 1528 WITH INSTRUCTIONS AND BELONGINGS.
== END 2019-05-20 15:28 | disposition home health service (06) | DRG 280 ==
LOC: ER 08:39 → MEDS 11:36 → PCU 11:36 → MEDS 17:15
PROVIDERS: Internal Medicine; Nurse Practitioner Acute Care; Physician Assistant; ADMIT Internal Medicine
DX: I13.0 Hypertensive heart and chronic kidney disease with heart failure and stage 1 through stage 4 chronic kidney disease, or unspecified chronic kidney disease (principal); I50.21 Acute systolic (congestive) heart failure; I21.A1 Myocardial infarction type 2; N18.4 Chronic kidney disease, stage 4 (severe); J10.1 Influenza due to other identified influenza virus with other respiratory manifestations; G47.33 Obstructive sleep apnea (adult) (pediatric); Z91.19 Patient's noncompliance with other medical treatment and regimen; E03.9 Hypothyroidism, unspecified; Z85.3 Personal history of malignant neoplasm of breast; D86.0 Sarcoidosis of lung; Z92.21 Personal history of antineoplastic chemotherapy; Z92.3 Personal history of irradiation; K21.9 Gastro-esophageal reflux disease without esophagitis; I95.2 Hypotension due to drugs; T46.3X5A Adverse effect of coronary vasodilators, initial encounter; Z85.850 Personal history of malignant neoplasm of thyroid; E78.5 Hyperlipidemia, unspecified; F41.1 Generalized anxiety disorder
CPT/HCPCS: 0099U; 36415; 71046; 80053; 80069; 83735; 83880; 84443; 84484; 85025; 87081; 93005; 93010; 93306; 94640; 94660; 94761; 94762; 97110; 97162; 99285-25; A9270; J1644; J1940; J3010

== ENCOUNTER 2019-08-18 02:27 | Emergency (ER) | payer MEDICARE, OTHER ==
[~2019-08-18] VITALS: Ht 157.5 cm; Wt 63.5 kg
[~2019-08-18 02:27] MED LIST changes: +ALBU90OI INH; +ASCO500 PO; +ASPI81CH PO; +BENZ100A PO; +ESTR2 PO; +FURO40 PO; +LEVSOD112 PO; +OSEL75CA PO; +THERA-D2000 UNIT PO; +[UNRECOGNIZED DRUG - OTHER] PO
[2019-08-18 03:16] LABS: BASOPHILS ABSOLUTE AUTO 0.07 K/mm3 (0.00-0.23); BASOPHILS PERCENT AUTO 1 % (0-2); EOSINOPHILS ABSOLUTE AUTO 0.22 K/mm3 (0.00-0.68); EOSINOPHILS PERCENT AUTO 3 % (0-6); Hematocrit 36.3 % (33.0-51.0); Hemoglobin 10.9 g/dL (11.5-16.0); IMMATURE GRAN ABSOLUTE AUTO 0.02 K/mm3 (0.00-0.10); IMMATURE GRAN PERCENT AUTO 0 % (0-1); LYMPHOCYTES PERCENT AUTO 22 % (21-46); MONOCYTES ABSOLUTE AUTO 0.69 K/mm3 (0.16-1.47); MONOCYTES PERCENT AUTO 10 % (4-13); Mean Corpuscular HGB 24.4 pg (26.0-34.0); Mean Corpuscular Volume 81 fL (80-100); Mean Platelet Volume 11.3 fL (9.1-12.4); NEUTROPHILS ABSOLUTE AUTO 4.28 K/mm3 (1.96-9.15); NEUTROPHILS PERCENT AUTO 63 % (41-73); Platelet Count 296 K/mm3 (150-400); RDW Coefficient Variation 15.6 % (11.7-14.2); RDW Standard Deviation 46.2 fL (35.1-46.3); Red Blood Cell Count 4.47 M/mm3 (3.80-5.20); White Blood Cell Count 6.78 K/mm3 (4.00-11.30)
[2019-08-18] MEDS ORDERED: Effexor Xr150 MG (03:27)
[2019-08-18] MEDS ORDERED: LEVSOD137 (03:27)
[2019-08-18] MEDS ORDERED: FLUR15 PO (03:27)
[2019-08-18] MEDS ORDERED: Neurontin300 MG (03:27)
[2019-08-18] MEDS ORDERED: Avapro150 MG (03:27)
[2019-08-18] MEDS ORDERED: METO50ER (03:27)
[2019-08-18 03:36] LABS: Alanine Aminotransfer (ALT/SGP 14 U/L (12-78); Albumin, Blood 3.2 g/dL (3.4-5.0); Albumin/Globulin Ratio 0.9 (0.8-1.8); Alk Phos 59 U/L (50-136); Anion Gap 7 mmol/L (6-16); Aspartate Aminotrans (AST/SGOT 17 U/L (12-37); Bilirubin, Total 1.1 mg/dL (0.1-1.0); Blood Urea Nitrogen 21 mg/dL (8-24); CO2, Blood 26 mmol/L (21-32); Calcium, Blood 8.7 mg/dL (8.5-10.1); Chloride, Blood 110 mmol/L (98-108); Creatinine, Blood 1.05 mg/dL (0.40-1.00); Globulin, Blood 3.6 g/dL (2.2-4.0); Glomerular Filtration Rate 54 (60-); Glucose, Blood 118 mg/dL (70-99); Magnesium, Blood 1.9 mg/dL (1.6-2.4); Potassium, Blood 4.3 mmol/L (3.5-5.5); Sodium, Blood 143 mmol/L (136-145); Total Protein, Blood 6.8 g/dL (6.4-8.2); Troponin I <0.015 ng/mL (0.000-0.040)
[2019-08-18] MEDS ORDERED: Lasix40 MG PO (05:19)
== END 2019-08-18 05:42 | disposition home or self-care (01) ==
LOC: ER 02:27
PROVIDERS: Emergency Medicine
DX: I11.0 Hypertensive heart disease with heart failure (principal); I50.9 Heart failure, unspecified; J44.9 Chronic obstructive pulmonary disease, unspecified; E11.9 Type 2 diabetes mellitus without complications; K21.9 Gastro-esophageal reflux disease without esophagitis; Z79.899 Other long term (current) drug therapy; Z79.82 Long term (current) use of aspirin; Z79.51 Long term (current) use of inhaled steroids
CPT/HCPCS: 36415; 71045; 80053; 83735; 83880; 84484; 85025; 93005; 93010; 96374; 99285-25; J1940; U0003

== ENCOUNTER 2020-07-13 17:05 | Observation (INO) | payer MEDICARE, OTHER, BC ==
[~2020-07-13] VITALS: Ht 157.5 cm; Wt 62.9 kg
[~2020-07-13 17:05] MED LIST changes: -ASPI81CH PO; +Aspir 8181 MG PO; +Avapro150 MG; -ESTR2 PO; +LEVSOD137 PO; +Lasix40 MG PO; +METO50ER; +METO50ER PO; +Neurontin300 MG
[2020-07-13 17:35] LABS: Base Excess Venous -4.3 mmol/L; Bicarbonate Venous 21.5 mmol/L (24.0-30.0); PCO2 Venous 33.6 mmHg (38-42); PO2 Venous 175 mmHg (38-42)
[2020-07-13] MEDS ORDERED: OXYC10TA19 PO (17:43)
[2020-07-13 17:50] LABS: BASOPHILS ABSOLUTE AUTO 0.06 K/mm3 (0.00-0.23); BASOPHILS PERCENT AUTO 1 % (0-2); EOSINOPHILS ABSOLUTE AUTO 0.09 K/mm3 (0.00-0.68); EOSINOPHILS PERCENT AUTO 2 % (0-6); Hematocrit 41.4 % (33.0-51.0); Hemoglobin 12.8 g/dL (11.5-16.0); IMMATURE GRAN ABSOLUTE AUTO 0.01 K/mm3 (0.00-0.10); IMMATURE GRAN PERCENT AUTO 0 % (0-1); LYMPHOCYTES ABSOLUTE AUTO 1.31 K/mm3 (0.84-5.20); LYMPHOCYTES PERCENT AUTO 24 % (21-46); MONOCYTES ABSOLUTE AUTO 0.69 K/mm3 (0.16-1.47); MONOCYTES PERCENT AUTO 13 % (4-13); Mean Corpuscular HGB 25.9 pg (26.0-34.0); Mean Corpuscular HGB Conc 30.9 g/dL (31.5-36.5); Mean Corpuscular Volume 84 fL (80-100); Mean Platelet Volume 11.3 fL (9.1-12.4); NEUTROPHILS ABSOLUTE AUTO 3.37 K/mm3 (1.96-9.15); NEUTROPHILS PERCENT AUTO 61 % (41-73); Platelet Count 227 K/mm3 (150-400); RDW Coefficient Variation 14.6 % (11.7-14.2); RDW Standard Deviation 44.1 fL (35.1-46.3); Red Blood Cell Count 4.95 M/mm3 (3.80-5.20); White Blood Cell Count 5.53 K/mm3 (4.00-11.30)
[2020-07-13 17:56] LABS: Alanine Aminotransfer (ALT/SGP 15 U/L (12-78); Albumin, Blood 3.4 g/dL (3.4-5.0); Albumin/Globulin Ratio 0.8 (0.8-1.8); Alk Phos 94 U/L (50-136); Anion Gap 7 mmol/L (6-16); Aspartate Aminotrans (AST/SGOT 22 U/L (12-37); Bilirubin, Total 1.1 mg/dL (0.1-1.0); Blood Urea Nitrogen 26 mg/dL (8-24); Bun/Creatinine Ratio 20.8 (12.0-20.0); CO2, Blood 21 mmol/L (21-32); Calcium, Blood 8.6 mg/dL (8.5-10.1); Chloride, Blood 107 mmol/L (98-108); Creatinine, Blood 1.25 mg/dL (0.40-1.00); Ethanol (Alcohol), Blood, Med <3 mg/dL; Globulin, Blood 4.1 g/dL (2.2-4.0); Glomerular Filtration Rate 44 (60-); Glucose, Blood 122 mg/dL (70-99); Sodium, Blood 135 mmol/L (136-145); Total Protein, Blood 7.5 g/dL (6.4-8.2)
[2020-07-13] MEDS ORDERED: ESTR2 PO (19:28)
[2020-07-13] MEDS ORDERED: KLOR-CON 1010 MEQ PO (19:37)
[2020-07-13] MEDS ORDERED: DEPAKOTE ER500 M2 PO (19:37)
[2020-07-13] MEDS ORDERED: PRAV20 PO (19:38)
[2020-07-13] MEDS ORDERED: BREO ELLIPTA 11 EAC1 INH (19:43)
[2020-07-13] MEDS ORDERED: TOPI100 (19:44)
--- NOTE | 2020-07-13 20:40 | NUR ---
PT ARRIVES TO ICU 5 VIA GURNEY FROM ER. SHE IS ALERT AND ORIENTED ON ARRIVAL TO ICU, FAMILIAR WITH HER MEDICATION LIST ALTHOUGH DOES STATE THAT SHE HAD A COMPLETE LIST IN HER PURSE HOWEVER SHE SENT THAT HOME WITH HER PRIOR TO ARRIVAL TO ICU. SHE DENIES SOB/DYSPNEA BEYOND HER BASELINE, STATES THAT HER COUGH IS NOT NEW AND CITES HER HISTORY OF SARCOIDOSIS, LUNGS ARE CLEAR AND SATS ARE 100% WITH OXYGEN VIA NASAL CANNULA AT 4 L/MIN, DECREASED TO 2 L/MIN DURING ASSESSMENT WITH SATS MAINTAINING HIGH 90S WHILE AWAKE, WILL CONT TO MONITOR AND TITRATE TOLERATED. HRR, SINUS TO SINUS TACH ON MONITOR, RATE 90-100S, PRESSURES MAINTAINING, SKIN PWD WITH BRISK CAP REFILL, NO EDEMA IS NOTED, SCATTERED BRUISING TO BLE. UP TO BSC TO VOID JUST AFTER ARRIVAL AND URINE IS FOUL SMELLING AND FAIZAN IN COLOR, SPECIMEN SENT FOR ER ORDERED UA CULTURE IF INDICATED. ATTENDS WAS IN PLACE WITH PAD, PT STATES DOES HAVE STRESS INCONTINENCE. COCCYX VISUALIZED, NO BREAKDOWN NOTED.
[2020-07-13 21:46] LABS: Source, Urine Clean Catch
[2020-07-13 21:49] LABS: Bilirubin, Urine Neg (Neg); Blood, Urine 3+ (Neg); Glucose Qualitative, Urine Neg (Neg); Ketones, Urine 1+ (Neg); Leukocyte Esterase, Urine 3+ (Neg); Nitrite, Urine Neg (Neg); Protein, Urine 3+ (Neg); Specific Gravity, Urine 1.025 (1.003-1.022); Urobilinogen, Urine 1+ (Normal)
[2020-07-13 21:50] LABS: Appearance, Urine Cloudy (Clear); Color, Urine Yellow (P-Yellow)
[2020-07-13 22:03] LABS: White Blood Cells, Urine 50-100 /hpf (0-5)
[2020-07-13 22:04] LABS: Amorphous Mod (0-Heavy); Bacteria Many /hpf; Red Blood Cells, Urine 0-2 /hpf (0-2); Squamous Epithelial Cells Many /hpf (Few)
[2020-07-14 05:28] LABS: BASOPHILS ABSOLUTE AUTO 0.08 K/mm3 (0.00-0.23); BASOPHILS PERCENT AUTO 2 % (0-2); EOSINOPHILS ABSOLUTE AUTO 0.14 K/mm3 (0.00-0.68); EOSINOPHILS PERCENT AUTO 3 % (0-6); Hematocrit 39.6 % (33.0-51.0); Hemoglobin 12.3 g/dL (11.5-16.0); IMMATURE GRAN ABSOLUTE AUTO 0.01 K/mm3 (0.00-0.10); IMMATURE GRAN PERCENT AUTO 0 % (0-1); LYMPHOCYTES PERCENT AUTO 31 % (21-46); MONOCYTES ABSOLUTE AUTO 0.72 K/mm3 (0.16-1.47); MONOCYTES PERCENT AUTO 15 % (4-13); Mean Corpuscular HGB 25.8 pg (26.0-34.0); Mean Corpuscular HGB Conc 31.1 g/dL (31.5-36.5); Mean Corpuscular Volume 83 fL (80-100); Mean Platelet Volume 11.2 fL (9.1-12.4); NEUTROPHILS ABSOLUTE AUTO 2.38 K/mm3 (1.96-9.15); NEUTROPHILS PERCENT AUTO 49 % (41-73); Platelet Count 182 K/mm3 (150-400); RDW Coefficient Variation 14.5 % (11.7-14.2); RDW Standard Deviation 43.9 fL (35.1-46.3); Red Blood Cell Count 4.77 M/mm3 (3.80-5.20); White Blood Cell Count 4.83 K/mm3 (4.00-11.30)
[2020-07-14 05:43] LABS: Calcium, Blood 8.5 mg/dL (8.5-10.1); Creatinine, Blood 1.4 mg/dL (0.40-1.00); Potassium, Blood 4.1 mmol/L (3.5-5.5)
--- NOTE | 2020-07-14 06:05 | NUR ---
PT ADMITTED FROM ER FOR DX OF OXYCODONE OVERDOSE. PT STATES THAT SHE IS UNSURE IF HER OXYCODONE IS IMMEDIATE RELEASE OR EXTENDED RELEASE. NARCAN GTT INITIALLY AT 1 MG/HR HOWEVER THAT WAS TITRATED DOWN TO STANDBY NEAR MIDNOC (SEE ICU FLOWSHEET FOR EXACT TIME). SHE REMAINS ALERT AND ORIENTED THIS AM, EASILY ROUSEABLE TO VERBAL STIMULI, RESP RATE 20S, SATS HIGH 90S WITH OXYGEN VIA NASAL CANNULA AT 2 L/MIN, ATTEMPTED TO TITRATE TO ROOM AIR HOWEVER PT WAS NOTED TO FREQUENTLY DECREASE SATS TO THE MID 80S AND OXYGEN WAS TITRATED BACK UP TO 2 L/MIN. UP TO BS WITH 1 PERSON MODERATE ASSIST AND BED ALARM IS ARMED PT IS IMPULSIVE. CALL WAS PLACED TO DR SMITH TO DISCUSS UA THAT WAS ORDERED BY ER WELL PT FREQUENTLY UP TO VOID 50 ML AT A TIME, NO NEW ORDERS. PT DID STATE THAT SHE HAS ADVANCED DIRECTIVE PAPERWORK ON FILE AND DOES NOT WANT CPR OR INTUBATION, WILL REPORT TO DAY SHIFT TO ATTEMPT TO OBTAIN COPIES OF ADVANCE DIRECTIVES TODAY.
--- NOTE | 2020-07-14 07:16 | NUR ---
ASSUMED CARE: PT RESTING IN BED AT THIS TIME ON RA. RT AT BEDSIDE. NARCAN GTT HAS BEEN OFF SINCE MN. NO ACUTE NEEDS OR CONCERNS AT THIS TIME.
[2020-07-14] MEDS ORDERED: NORT10 PO (09:01)
--- NOTE | 2020-07-14 09:46 | NUR ---
DR KING CAME TO SEE PT AND IS AWARE OF UA RESULT. FEELS IT IS CONTAMINANT. THIS RN EDUCATED PT THAT IF SHE IS TO HAVE ANY UTI SYMPTOMS SHE IS TO CONTACT DR SERNA. LA'S DC'D WNL. PT DECLINED FURTHER QUESTIONS OR CONCERNS. ESCORTED OUT AT [place] VIA WHEEL CHAIR BY ALISIA
== END 2020-07-14 09:45 | disposition home or self-care (01) ==
LOC: ER 17:05 → ICUW 17:06 → ICUE 20:38
PROVIDERS: Emergency Medicine; ADMIT Family Medicine
DX: T40.2X1A Poisoning by other opioids, accidental (unintentional), initial encounter (principal); G92 Toxic encephalopathy; E87.1 Hypo-osmolality and hyponatremia; I13.0 Hypertensive heart and chronic kidney disease with heart failure and stage 1 through stage 4 chronic kidney disease, or unspecified chronic kidney disease; I50.9 Heart failure, unspecified; N18.30 Chronic kidney disease, stage 3 unspecified; E78.5 Hyperlipidemia, unspecified; G47.33 Obstructive sleep apnea (adult) (pediatric); K21.9 Gastro-esophageal reflux disease without esophagitis; E03.9 Hypothyroidism, unspecified; Z85.3 Personal history of malignant neoplasm of breast
CPT/HCPCS: 36415; 70450; 80048; 80053; 81001; 82803; 82947; 85025; 87077; 87086; 87186; 93005; 93010; 94640; 96365; 96372; 96376; 99285-25; A9270; G0378; G0480; J1650; J2310

== ENCOUNTER 2020-07-24 15:42 | Emergency (ER) | payer MEDICARE, OTHER ==
[~2020-07-24] VITALS: Ht 157.5 cm; Wt 61.2 kg
[~2020-07-24 15:42] MED LIST changes: +BREO ELLIPTA 11 EAC1 INH; +DEPAKOTE ER500 M2 PO; +ESTR2 PO; +KLOR-CON 1010 MEQ PO; +NORT10 PO; +TOPI100
[2020-07-24 16:07] LABS: BASOPHILS ABSOLUTE AUTO 0.09 K/mm3 (0.00-0.23); BASOPHILS PERCENT AUTO 1 % (0-2); EOSINOPHILS ABSOLUTE AUTO 0.14 K/mm3 (0.00-0.68); EOSINOPHILS PERCENT AUTO 2 % (0-6); Hemoglobin 13.7 g/dL (11.5-16.0); IMMATURE GRAN ABSOLUTE AUTO 0.03 K/mm3 (0.00-0.10); IMMATURE GRAN PERCENT AUTO 0 % (0-1); LYMPHOCYTES ABSOLUTE AUTO 1.54 K/mm3 (0.84-5.20); LYMPHOCYTES PERCENT AUTO 22 % (21-46); MONOCYTES ABSOLUTE AUTO 0.71 K/mm3 (0.16-1.47); MONOCYTES PERCENT AUTO 10 % (4-13); Mean Corpuscular HGB 25.2 pg (26.0-34.0); Mean Corpuscular HGB Conc 31.1 g/dL (31.5-36.5); Mean Corpuscular Volume 81 fL (80-100); Mean Platelet Volume 11.2 fL (9.1-12.4); NEUTROPHILS ABSOLUTE AUTO 4.45 K/mm3 (1.96-9.15); NEUTROPHILS PERCENT AUTO 64 % (41-73); Platelet Count 358 K/mm3 (150-400); RDW Coefficient Variation 15.1 % (11.7-14.2); RDW Standard Deviation 44.3 fL (35.1-46.3); Red Blood Cell Count 5.44 M/mm3 (3.80-5.20); White Blood Cell Count 6.96 K/mm3 (4.00-11.30)
[2020-07-24 16:28] LABS: Alanine Aminotransfer (ALT/SGP 15 U/L (12-78); Albumin, Blood 3.3 g/dL (3.4-5.0); Albumin/Globulin Ratio 0.7 (0.8-1.8); Alk Phos 88 U/L (50-136); Anion Gap 9 mmol/L (6-16); Aspartate Aminotrans (AST/SGOT 19 U/L (12-37); Bilirubin, Total 0.9 mg/dL (0.1-1.0); Blood Urea Nitrogen 18 mg/dL (8-24); Bun/Creatinine Ratio 14.5 (12.0-20.0); CO2, Blood 22 mmol/L (21-32); Calcium, Blood 8.8 mg/dL (8.5-10.1); Chloride, Blood 105 mmol/L (98-108); Creatinine, Blood 1.24 mg/dL (0.40-1.00); Globulin, Blood 4.6 g/dL (2.2-4.0); Glomerular Filtration Rate 44 (60-); Glucose, Blood 112 mg/dL (70-99); Potassium, Blood 4.3 mmol/L (3.5-5.5); Sodium, Blood 136 mmol/L (136-145); Total Protein, Blood 7.9 g/dL (6.4-8.2); Troponin I <0.015 ng/mL (0.000-0.040)
[2020-07-24] MEDS ORDERED: Prednisone20 MG PO (17:33)
== END 2020-07-24 18:18 | disposition home or self-care (01) ==
LOC: ER 15:42
PROVIDERS: Emergency Medicine
DX: J44.1 Chronic obstructive pulmonary disease with (acute) exacerbation (principal); Z79.82 Long term (current) use of aspirin; Z79.899 Other long term (current) drug therapy
CPT/HCPCS: 36415; 71045; 80053; 84484; 85025; 93005; 93010; 96374; 99285-25; J2930

== ENCOUNTER 2020-08-06 19:17 | Emergency (ER) | payer MEDICARE, OTHER ==
[~2020-08-06] VITALS: Ht 162.6 cm; Wt 63.5 kg
[~2020-08-06 19:17] MED LIST changes: -ONDA4ODT MM
[2020-08-06 20:28] LABS: BASOPHILS PERCENT AUTO 2 % (0-2); EOSINOPHILS ABSOLUTE AUTO 0.13 K/mm3 (0.00-0.68); EOSINOPHILS PERCENT AUTO 2 % (0-6); Hematocrit 39.8 % (33.0-51.0); Hemoglobin 12.1 g/dL (11.5-16.0); IMMATURE GRAN ABSOLUTE AUTO 0.01 K/mm3 (0.00-0.10); IMMATURE GRAN PERCENT AUTO 0 % (0-1); LYMPHOCYTES ABSOLUTE AUTO 1.45 K/mm3 (0.84-5.20); LYMPHOCYTES PERCENT AUTO 23 % (21-46); MONOCYTES ABSOLUTE AUTO 0.42 K/mm3 (0.16-1.47); MONOCYTES PERCENT AUTO 7 % (4-13); Mean Corpuscular HGB 24.8 pg (26.0-34.0); Mean Corpuscular HGB Conc 30.4 g/dL (31.5-36.5); Mean Corpuscular Volume 82 fL (80-100); Mean Platelet Volume 12.4 fL (9.1-12.4); NEUTROPHILS ABSOLUTE AUTO 4.13 K/mm3 (1.96-9.15); NEUTROPHILS PERCENT AUTO 66 % (41-73); Platelet Count 180 K/mm3 (150-400); RDW Coefficient Variation 16.8 % (11.7-14.2); RDW Standard Deviation 48.3 fL (35.1-46.3); Red Blood Cell Count 4.88 M/mm3 (3.80-5.20); White Blood Cell Count 6.24 K/mm3 (4.00-11.30)
[2020-08-06 21:47] LABS: Albumin, Blood 3.3 g/dL (3.4-5.0); Bilirubin, Total 2.4 mg/dL (0.1-1.0); Bun/Creatinine Ratio 15.3 (12.0-20.0); Calcium, Blood 8.8 mg/dL (8.5-10.1); Creatinine, Blood 1.76 mg/dL (0.40-1.00); Globulin, Blood 3.4 g/dL (2.2-4.0); Potassium, Blood 5.4 mmol/L (3.5-5.5); Total Protein, Blood 6.7 g/dL (6.4-8.2); Troponin I 0.022 ng/mL (0.000-0.040)
[2020-08-07] MEDS ORDERED: ONDA4ODT MM (00:53)
== END 2020-08-07 01:21 | disposition home or self-care (01) ==
LOC: ER 19:17
PROVIDERS: Student in an Organized Health Care Education/Training Program
DX: R11.2 Nausea with vomiting, unspecified (principal); R53.83 Other fatigue; Z79.899 Other long term (current) drug therapy
CPT/HCPCS: 36415; 71045; 76705; 80053; 83880; 84484; 85025; 93005; 93010; 96361; 96374; 99285-25; J2405; J7030

== ENCOUNTER → 2020-08-06 | Outpatient (CLI) | payer MEDICARE, OTHER ==
[~2020-08-06] MED LIST changes: +ONDA4ODT MM
[2020-08-06 18:48] LABS: BASOPHILS ABSOLUTE AUTO 0.09 K/mm3 (0.00-0.23); BASOPHILS PERCENT AUTO 1 % (0-2); EOSINOPHILS ABSOLUTE AUTO 0.18 K/mm3 (0.00-0.68); EOSINOPHILS PERCENT AUTO 3 % (0-6); Hematocrit 39.7 % (33.0-51.0); Hemoglobin 12.5 g/dL (11.5-16.0); IMMATURE GRAN ABSOLUTE AUTO 0.03 K/mm3 (0.00-0.10); IMMATURE GRAN PERCENT AUTO 0 % (0-1); LYMPHOCYTES ABSOLUTE AUTO 1.96 K/mm3 (0.84-5.20); LYMPHOCYTES PERCENT AUTO 27 % (21-46); MONOCYTES ABSOLUTE AUTO 0.44 K/mm3 (0.16-1.47); MONOCYTES PERCENT AUTO 6 % (4-13); Mean Corpuscular HGB 24.8 pg (26.0-34.0); Mean Corpuscular HGB Conc 31.5 g/dL (31.5-36.5); Mean Corpuscular Volume 79 fL (80-100); Mean Platelet Volume 11.3 fL (9.1-12.4); NEUTROPHILS ABSOLUTE AUTO 4.62 K/mm3 (1.96-9.15); NEUTROPHILS PERCENT AUTO 63 % (41-73); Platelet Count 223 K/mm3 (150-400); RDW Coefficient Variation 16.7 % (11.7-14.2); RDW Standard Deviation 45.6 fL (35.1-46.3); Red Blood Cell Count 5.05 M/mm3 (3.80-5.20); White Blood Cell Count 7.32 K/mm3 (4.00-11.30)
[2020-08-06 19:02] LABS: Albumin, Blood 3.3 g/dL (3.4-5.0); Albumin/Globulin Ratio 0.9 (0.8-1.8); Bilirubin, Total 2.1 mg/dL (0.1-1.0); Bun/Creatinine Ratio 13.6 (12.0-20.0); Calcium, Blood 8.8 mg/dL (8.5-10.1); Creatinine, Blood 2.06 mg/dL (0.40-1.00); Globulin, Blood 3.7 g/dL (2.2-4.0); Potassium, Blood 5.2 mmol/L (3.5-5.5); Troponin I 0.019 ng/mL (0.000-0.040)
== END | disposition home or self-care (01) ==
LOC: LAB SHORT 18:22
PROVIDERS: Family Medicine
DX: R06.00 Dyspnea, unspecified (principal)
CPT/HCPCS: 80053; 83880; 84484; 85025

== ENCOUNTER 2020-08-19 06:53 | Inpatient (IN) | payer MEDICARE, OTHER, BC ==
[~2020-08-19] VITALS: Ht 162.6 cm; Wt 64.3 kg
[~2020-08-19 06:53] MED LIST changes: +ONDA4ODT MM
[2020-08-19 08:07] LABS: PCO2 Arterial 35.6 mmHg (35-45); PO2 Arterial 69.2 mmHg (80-100); pH Blood Arterial 7.13 (7.35-7.45)
[2020-08-19 08:13] LABS: BASOPHILS ABSOLUTE AUTO 0.02 K/mm3 (0.00-0.23); BASOPHILS PERCENT AUTO 0 % (0-2); EOSINOPHILS ABSOLUTE AUTO 0.01 K/mm3 (0.00-0.68); EOSINOPHILS PERCENT AUTO 0 % (0-6); Hematocrit 41.9 % (33.0-51.0); Hemoglobin 12.5 g/dL (11.5-16.0); IMMATURE GRAN ABSOLUTE AUTO 0.07 K/mm3 (0.00-0.10); IMMATURE GRAN PERCENT AUTO 1 % (0-1); LYMPHOCYTES ABSOLUTE AUTO 0.85 K/mm3 (0.84-5.20); LYMPHOCYTES PERCENT AUTO 8 % (21-46); MONOCYTES ABSOLUTE AUTO 0.69 K/mm3 (0.16-1.47); MONOCYTES PERCENT AUTO 7 % (4-13); Mean Corpuscular HGB 24.3 pg (26.0-34.0); Mean Corpuscular HGB Conc 29.8 g/dL (31.5-36.5); Mean Corpuscular Volume 82 fL (80-100); NEUTROPHILS ABSOLUTE AUTO 8.83 K/mm3 (1.96-9.15); NEUTROPHILS PERCENT AUTO 84 % (41-73); NRBC ABSOLUTE 0.05 K/mm3 (0.00-0.02); NRBC Auto 0.5 /100 WBC (0.0-0.2); Platelet Count 172 K/mm3 (150-400); RDW Coefficient Variation 18.1 % (11.7-14.2); RDW Standard Deviation 49.9 fL (35.1-46.3); Red Blood Cell Count 5.14 M/mm3 (3.80-5.20); White Blood Cell Count 10.47 K/mm3 (4.00-11.30)
[2020-08-19 08:18] LABS: Source, Urine Catheter
[2020-08-19 08:30] LABS: Appearance, Urine Cloudy (Clear); Blood, Urine 4+ (Neg); Color, Urine Yellow (P-Yellow); Glucose Qualitative, Urine Neg (Neg); Ketones, Urine 1+ (Neg); Leukocyte Esterase, Urine 1+ (Neg); Nitrite, Urine Pos (Neg); Protein, Urine 4+ (Neg); Specific Gravity, Urine 1.025 (1.003-1.022); Urobilinogen, Urine 3+ (Normal)
[2020-08-19 08:32] LABS: Ethanol (Alcohol), Blood, Med <3 mg/dL; International Normalized Ratio 3.37; Magnesium, Blood 2.3 mg/dL (1.6-2.4); Troponin I 0.116 ng/mL (0.000-0.040)
[2020-08-19 08:40] LABS: Bilirubin, Urine 2+ (Neg)
[2020-08-19 08:42] LABS: Amorphous Heavy (0-Heavy); Bacteria Many /hpf; Red Blood Cells, Urine 25-50 /hpf (0-2); Squamous Epithelial Cells Mod /hpf (Few)
[2020-08-19] MEDS ORDERED: BREO ELLIPTA 11 EAC1 (08:44)
[2020-08-19] MEDS ORDERED: NORT10 PO (08:44)
[2020-08-19] MEDS ORDERED: LEVSOD137 PO (08:44)
[2020-08-19] MEDS ORDERED: ASPI81CH PO (08:45)
[2020-08-19] MEDS ORDERED: OXYC5 PO (08:46)
[2020-08-19] MEDS ORDERED: POTA10T PO (08:46)
[2020-08-19] MEDS ORDERED: AMIT50 PO (08:46)
[2020-08-19] MEDS ORDERED: Percocet 5-3251 EACH PO (08:47)
[2020-08-19] MEDS ORDERED: PRAV20 PO (08:47)
[2020-08-19] MEDS ORDERED: MYRBETRIQ25 MG PO (08:47)
[2020-08-19] MEDS ORDERED: ZYRTEC10 M2 PO (08:48)
[2020-08-19] MEDS ORDERED: LASIX40 MG PO (08:49)
[2020-08-19] MEDS ORDERED: METO50ER PO (08:50)
[2020-08-19 08:53] LABS: Albumin, Blood 3.4 g/dL (3.4-5.0); Albumin/Globulin Ratio 1.1 (0.8-1.8); Bilirubin, Total 3.5 mg/dL (0.1-1.0); Bun/Creatinine Ratio 10.1 (12.0-20.0); Calcium, Blood 8.8 mg/dL (8.5-10.1); Creatinine, Blood 3.18 mg/dL (0.40-1.00); Globulin, Blood 3.1 g/dL (2.2-4.0); Potassium, Blood 7.1 mmol/L (3.5-5.5); Total Protein, Blood 6.5 g/dL (6.4-8.2)
[2020-08-19 08:57] LABS: U Amphetamine Screen Not Detected; U Barbituate Screen Not Detected; U Benzodiazapine Screen DETECTED; U Buprenorphine Screen Not Detected; U Cannabinoids Screen Not Detected; U Cocaine Screen Not Detected; U Methadone Screen Not Detected; U Methamphetamine Screen Not Detected; U Opiates Screen Not Detected; U Oxycodone Screen DETECTED; U Phencyclidine Screen Not Detected
[2020-08-19 08:58] LABS: U Propoxyphene Screen Not Detected
[2020-08-19 09:15] LABS: Calcium, Ionized (POC) 0.99 mmol/L (1.10-1.46); Chloride (POC) 107 mmol/L (98-108); Creatinine (POC) 3.2 mg/dL (0.6-1.0); Glucose (ISTAT POC) 209 mg/dL (70-99); Hemoglobin (POC) 13.9 g/dL (12.0-16.0); Potassium (POC) 6.1 mmol/L (3.5-5.5); Sodium (POC) 136 mmol/L (135-148); Total CO2 (POC) 13 mmol/L (21-32)
[2020-08-19 09:49] LABS: Valproic Acid <3.0 ug/mL (50.0-100.0)
[2020-08-19 10:41] LABS: Creatine Kinase MB 12.1 ng/mL (0.0-3.6); Creatine Kinase MB Index 5.6 (0.0-4.0)
--- NOTE | 2020-08-19 13:00 | NUR ---
ADMIT PT ARRIVED TO ICU 11 AT 1110 VIA ER BED. PT TRANSFERED TO ICU BED. PT SOMNOLENT, BUT IS MINIMALLY AROUSABLE TO VERBAL STIMULI. PT WITH PERIODS OF RESTLESSNESS AND THRASHING ARMS/LEGS. PT UNABLE TO FOLLOW COMMANDS. PT INITIALLY ON 2L O2 NC. PT WITH POOR PERIPHERAL PERFUSION. INTERMITTENT SPO2 READINGS >90%. PT WITH PERIPHERAL IV'S IN PLACE WITH D10 INFUSING AT 50 ML/HR AND NS AT 150 ML/HR. PICC LINE ATTEMPTED WITHOUT SUCCESS. CEMENT KILN OPERATOR JOSE BECKHAM AT BEDSIDE, DISCUSSED PLAN OF CARE. DR RUIZ TO PLACE CENTRAL LINE. CL PLACED TO RIGHT IJ. PLACEMENT CONFIRMED WITH CXR, LABS DRAWN. PT BECAME HYPOTENSIVE, LEVOPHED STARTED. SEE FLOWSHEET. PT WITH HUERTA IN PLACE WITH MINIMAL AMOUNT OF DARK FAIZAN URINE OUTPUT. SBW RESTRAINTS PLACED D/T PULLING AT LINES/TUBES. PT HYPOTHERMIC, ANNETTE HUGGER PLACED. PT DAUGHTER BONITA UPDATED TO CURRENT CONDITION. WILL CONTINUE TO MONITOR.
[2020-08-19 13:48] LABS: Base Excess Venous -22.6 mmol/L; Bicarbonate Venous 8.6 mmol/L (24.0-30.0); PO2 Venous 42.6 mmHg (38-42)
[2020-08-19 13:52] LABS: Triiodothyronine, Free 0.57 pg/mL (2.18-3.98)
--- NOTE | 2020-08-19 14:03 | NUR ---
CPR in progress family contacted. Maria Esthermihir Trey not available [phone], message left. Daughter Zarina called at [phone], informed of status of patient.
[2020-08-19 14:34] LABS: Base Excess Venous -16.6 mmol/L; Bicarbonate Venous 12.2 mmol/L (24.0-30.0); PO2 Venous 60.4 mmHg (38-42)
[2020-08-19 14:35] LABS: pH Blood Venous 7.01 (7.34-7.37)
[2020-08-19 14:41] LABS: BASOPHILS ABSOLUTE AUTO 0.02 K/mm3 (0.00-0.23); BASOPHILS PERCENT AUTO 0 % (0-2); EOSINOPHILS ABSOLUTE AUTO 0.01 K/mm3 (0.00-0.68); EOSINOPHILS PERCENT AUTO 0 % (0-6); Hematocrit 36.6 % (33.0-51.0); Hemoglobin 10.5 g/dL (11.5-16.0); IMMATURE GRAN ABSOLUTE AUTO 0.11 K/mm3 (0.00-0.10); IMMATURE GRAN PERCENT AUTO 1 % (0-1); LYMPHOCYTES ABSOLUTE AUTO 1.16 K/mm3 (0.84-5.20); LYMPHOCYTES PERCENT AUTO 13 % (21-46); MONOCYTES ABSOLUTE AUTO 0.63 K/mm3 (0.16-1.47); MONOCYTES PERCENT AUTO 7 % (4-13); Mean Corpuscular HGB Conc 28.7 g/dL (31.5-36.5); Mean Corpuscular Volume 84 fL (80-100); NEUTROPHILS ABSOLUTE AUTO 6.95 K/mm3 (1.96-9.15); NEUTROPHILS PERCENT AUTO 78 % (41-73); NRBC ABSOLUTE 0.16 K/mm3 (0.00-0.02); NRBC Auto 1.8 /100 WBC (0.0-0.2); Platelet Count 59 K/mm3 (150-400); RDW Coefficient Variation 17.3 % (11.7-14.2); RDW Standard Deviation 51.6 fL (35.1-46.3); Red Blood Cell Count 4.38 M/mm3 (3.80-5.20); White Blood Cell Count 8.88 K/mm3 (4.00-11.30)
[2020-08-19 15:01] LABS: Magnesium, Blood 1.6 mg/dL (1.6-2.4)
[2020-08-19 15:05] LABS: Bun/Creatinine Ratio 10.9 (12.0-20.0); Calcium, Blood 8.4 mg/dL (8.5-10.1); Creatinine, Blood 2.66 mg/dL (0.40-1.00); Phosphorus, Blood 5.9 mg/dL (2.5-4.9)
[2020-08-19 15:08] LABS: Potassium, Blood 4.9 mmol/L (3.5-5.5)
[2020-08-19 15:44] LABS: Prothrombin Time Results >90.0 Sec (9.7-11.5)
[2020-08-19 15:53] LABS: International Normalized Ratio >10.00
--- NOTE | 2020-08-19 16:21 | NUR ---
JUNI MARAVILLA AT 1352 PT NOTED TO HAVE HR BRADYCARDIA 40'S AND DECREASING SPO2. CRASH CART BROUGHT TO BEDSIDE. DR RUIZ AT BEDSIDE. UNABLE TO PALPATE PULSE. CPR STARTED AT 1352, RESTRAINTS REMOVED, RT BAGGING PT. JUNI MARAVILLA CALLED. PT INTUBATED BY DR RUIZ. PT SPOUSE AND DAUGHTER CONTACTED. ROSC ACHIEVED AT 1407. SEE JUNI MARAVILLA FLOWSHEET IN CHART FOR MORE DETAILS OF CODE. PT SPOUSE AT BEDSIDE AT THIS TIME. PT MADE DNR STATUS. PT WITH 8.[address], CONFIRMED BY CXR. VENT SETTINGS AC 24, TV 350, PEEP 18, FIO2 100%. SPO2 CURRENTLY 78-82%. PT WITH BLOODY ETT SECRETIONS NOTED. PT UNRESPONSIVE AT THIS TIME, NOT SEDATED. LEVOPHED INFUSING AT 30 MCG/MIN, EPI 20 MCG/MIN, VASOPRESSION 0.04 UNITS/HR, D10 50 ML/HR, AND BICARB 150 ML/HR. UNABLE TO OBTAIN BP FROM MONITOR AT THIS TIME. PER DR RUIZ, ORDERS NOT TO ESCALATE CARE OR INCREASE PRESSORS AT THIS TIME. WILL CONTINUE TO MONITOR.
--- NOTE | 2020-08-19 17:59 | NUR ---
FAMILY UPDATE PT DAUGHTER AND SPOUSE REMAIN AT BEDSIDE. UPDATED TO CURRENT CONDITION. PLANNING TO AWAIT ARRIVAL OF OTHER FAMILY MEMBERS BEFORE ANY DECISIONS REGARDING PLAN OF CARE ARE MADE.
--- NOTE | 2020-08-19 18:00 | NUR ---
DOPPLER BP UNABLE TO OBTAIN BP VIA MONITOR. DOPPLER SBP 110'S.
--- NOTE | 2020-08-19 18:17 | NUR ---
Spiritual care note: I met spouse, Isaias, shortly after pt arrived in ICU. He was tearful, overwhelmed and appreciative of emotional support. Provided calm presence and facilitated life review. Isaias admits "she's been through a lot" as well as stating, "she's been pretty miserable the past two years." They have been 11 years. Isaias has contacted Stephania's two dtrs who are arriving this evening. Dtr requested prayer and annointing. [employer] priests are unavailable this week. I provided prayer of commendation and annointing with holy oil. Isaias appears to understand that Stephania is nearing end-of-life. I am standing by for dtr's arrival to meet any spiritual/emotional needs.
--- NOTE | 2020-08-19 18:20 | NUR ---
SHIFT SUMMARY PT REMAINS UNRESPONSIVE ON VENT. VENT SETTINGS UNCHANGED AT AC 24, TV 350, PEEP 18, FIO2 100%. SPO2 HAS PROGRESSIVELY DROPPED FROM LOW 80'S TO HIGH 60'S AT THIS TIME. PT REMAINS ON ALL GTT'S UNCHANGED. SEE FLOWSHEET FOR GTT INFO. PT WITH NO NEW URINE OUTPUT THIS AFTERNOON. PT REMAINS PALE/DUSKY THROUGHOUT. FAMILY REMAINS AT BEDSIDE. SEE PREVIOUS NOTES FOR MORE SHIFT INFO. WILL CONTINUE TO MONITOR AND REPORT OFF TO ONCOMING RN.
--- NOTE | 2020-08-19 18:59 | NUR ---
COMFORT CARE PT DAUGHTERS AND SPOUSE HAVE MADE DECISION TO WITHDRAW CARE. DR RUIZ NOTIFIED. COMFORT CARE ORDERS RECIEVED. ALL PRESSORS AND GTT'S STOPPED. PT EXTUBATED AT 1855 BY RT. FAMILY REMAINS AT BEDSIDE. WILL CONTINUE TO MONITOR.
--- NOTE | 2020-08-19 19:04 | NUR ---
TIME OF ASYSTOLE NOTED ON MONITOR. NO BREATH SOUNDS OR HEART TONES AUSCULTATED. TIME OF 1901. FAMILY REMAINS AT BEDSIDE.
--- NOTE | 2020-08-19 19:16 | NUR ---
Spiritual care note: Present at [facility] with fmaily. Prayer and emotional support given. [facility] selected for arrangements. Family tearful, but appropriate. Stephaina passed peacefully thanks to excellent nursing.
[2020-08-20 08:10] LABS: HBSAG SCREEN Negative (Negative); HEP A AB, IGM Negative (Negative); HEP B CORE AB, IGM Negative (Negative); HEP B CORE AB, TOT Negative (Negative); HEP C VIRUS AB <0.1 (0.0-0.9)
== END 2020-08-19 19:02 | DRG 80 ==
LOC: ER 06:53 → ICUW 10:23
PROVIDERS: Emergency Medicine; Internal Medicine Pulmonary Disease; Nurse Practitioner Acute Care; ADMIT Internal Medicine
PROC: 02HV33Z Insertion of Infusion Device into Superior Vena Cava, Percutaneous Approach (ICD-10-PCS; principal; 2020-08-19)
PROC: 5A1935Z Respiratory Ventilation, Less than 24 Consecutive Hours (ICD-10-PCS; 2020-08-19)
PROC: 0BH18EZ Insertion of Endotracheal Airway into Trachea, Via Natural or Artificial Opening Endoscopic (ICD-10-PCS; 2020-08-19)
PROC: 3E043XZ Introduction of Vasopressor into Central Vein, Percutaneous Approach (ICD-10-PCS; 2020-08-19)
DX: E03.5 Myxedema coma (principal); A41.9 Sepsis, unspecified organism; R65.20 Severe sepsis without septic shock; K72.00 Acute and subacute hepatic failure without coma; G92 Toxic encephalopathy; N17.9 Acute kidney failure, unspecified; F11.20 Opioid dependence, uncomplicated; E87.2 Acidosis; E87.1 Hypo-osmolality and hyponatremia; I50.22 Chronic systolic (congestive) heart failure; I13.0 Hypertensive heart and chronic kidney disease with heart failure and stage 1 through stage 4 chronic kidney disease, or unspecified chronic kidney disease; J90 Pleural effusion, not elsewhere classified; R04.2 Hemoptysis; Z51.5 Encounter for palliative care; E87.5 Hyperkalemia; M19.90 Unspecified osteoarthritis, unspecified site; E86.0 Dehydration; E03.9 Hypothyroidism, unspecified; D50.9 Iron deficiency anemia, unspecified; F32.9 Major depressive disorder, single episode, unspecified; E78.5 Hyperlipidemia, unspecified; N18.30 Chronic kidney disease, stage 3 unspecified; G47.33 Obstructive sleep apnea (adult) (pediatric); G89.29 Other chronic pain; E16.2 Hypoglycemia, unspecified; I46.9 Cardiac arrest, cause unspecified; M54.9 Dorsalgia, unspecified; J44.9 Chronic obstructive pulmonary disease, unspecified; K21.9 Gastro-esophageal reflux disease without esophagitis; Z66 Do not resuscitate; Z90.710 Acquired absence of both cervix and uterus; Z90.49 Acquired absence of other specified parts of digestive tract; Z98.890 Other specified postprocedural states; Z85.3 Personal history of malignant neoplasm of breast; Z92.21 Personal history of antineoplastic chemotherapy; Z92.3 Personal history of irradiation; Z95.828 Presence of other vascular implants and grafts; Z79.82 Long term (current) use of aspirin; Z79.899 Other long term (current) drug therapy; Z78.1 Physical restraint status
CPT/HCPCS: 31500; 36556; 51702; 70450; 71045; 76705; 80047; 80048; 80053; 80074; 80164; 81001; 82140; 82533; 82550; 82553; 82803; 82947; 83605; 83690; 83735; 84100; 84145; 84295; 84443; 84481; 84484; 85014; 85025; 85610; 85730; 86317; 86704; 86708; 86803; 87040; 87077; 87086; 87186; 87340; 93005; 93010; 93975; 94002; 96361-59; 96365-59; 96375-59; 96376-59; 99285-25; C1751; G0480; J0171; J0456; J0461; J0610; J0696; J1720; J1815; J1940; J2250; J2270; J2310; J3010; J7030; J7040; J7050; J7060; J7070; P9612